=== PATIENT | female | born 1930 | race Caucasian/White ===

== ENCOUNTER 2017-10-28 17:07 | Emergency (ER) | payer OTHER ==
[~2017-10-28] VITALS: Ht 167.6 cm; Wt 62.0 kg
[~2017-10-28 17:07] MED LIST: AMLODIPINE BESY10 MG PO; Ascorbic Acid,Ester- PO; CYANOCOBALAM1000 MCG PO; Dulcolax PO; FEMARA2.5 MG PO; Folvite PO; Glucophage PO; LETROZOLE2.5 MG PO; LEVOTHYROXINE125 MCG PO; Levothroid,Synthroid PO; METFORMIN HCL1000 MG PO; METOPROLOL SUC100 MG PO; METRO PO; Macrobid PO; Norvasc PO; PRAVACHOL80 MG PO; Percocet 5/325,Endoc PO; Pravachol PO; Protonix PO; Senokot S,Pericolace PO; Theragran PO; Toprol XL PO
[2017-10-28 17:43] LABS: HEMATOCRIT 33.3 % (36.0-46.0); HEMOGLOBIN 11.1 G/DL (11.9-15.5); MCH 31.1 PG (29.0-34.0); MCHC 33.3 G/DL (30.0-36.0); MCV 93.3 FL (83-99); PLATELET COUNT 162 K/uL (156-360); RBC DIS.WIDTH-CV 13.6 % (11.8-14.6); RBC DIS.WIDTH-SD 46.3 % (39-53); RED BLOOD COUNT 3.57 M/uL (3.80-5.20); WHITE BLOOD COUNT 7.1 K/uL (4.1-10.2)
[2017-10-28 17:56] LABS: ALBUMIN 4.1 g/dL (3.2-4.8)
[2017-10-28 17:57] LABS: CHLORIDE 109 mEq/L (99-109); POTASSIUM 3.5 mEq/L (3.7-5.4); SODIUM 140 mEq/L (136-147)
[2017-10-28 17:59] LABS: GLUCOSE 200 mg/dL (70-99); TOTAL PROTEIN 7.3 g/dL (6.4-8.3)
[2017-10-28 18:01] LABS: TOTAL BILIRUBIN 0.5 mg/dL (0.0-1.0)
[2017-10-28 18:02] LABS: ALKALINE PHOSPHATASE 79 IU/L (3-129)
[2017-10-28 18:03] LABS: GFR ESTIMATE (CALCULATED) 56 mL/min/
[2017-10-28 18:04] LABS: AST (GOT) 15 IU/L (2-34); UREA NITROGEN (BUN) 25 mg/dL (9-23)
[2017-10-28 18:05] LABS: ALT (GPT) 9 IU/L (3-49)
[2017-10-28 18:08] LABS: TROP-I INTERPRETATION NEGATIVE; TROPONIN-I 0.02 ng/mL (0.0-0.30)
[2017-10-28 19:55] LABS: APPEARANCE SL.HAZY ((CLEAR)); BILIRUBIN NEGATIVE; BLOOD SMALL; COLOR YELLOW ((YELLOW)); GLUCOSE (STRIP) NEGATIVE; KETONES NEGATIVE; LEUKOCYTES NEGATIVE; NITRITE NEGATIVE; PROTEIN (STRIP) NEGATIVE; UROBILINOGEN 0.2 MG/DL (0.2-1.0)
[2017-10-28 20:27] LABS: BACTERIA 3+ /HPF; EPITHELIAL CELLS 1+ /HPF; MUCUS 1+ /LPF; RED BLOOD CELLS 0-5 /HPF (0-5); UCUL ADDED? YES
[2017-10-29] MEDS ORDERED: CEFDINIR300 MG PO (00:26)
[2017-10-29 00:29] VITALS: BP 165/75
== END 2017-10-29 00:58 | disposition home or self-care (01) ==
LOC: EME 17:07
PROVIDERS: Emergency Medicine
DX: N39.0 Urinary tract infection, site not specified (principal); B96.1 Klebsiella pneumoniae [K. pneumoniae] as the cause of diseases classified elsewhere; F07.81 Postconcussional syndrome; E11.51 Type 2 diabetes mellitus with diabetic peripheral angiopathy without gangrene; I10 Essential (primary) hypertension; E03.9 Hypothyroidism, unspecified; K21.9 Gastro-esophageal reflux disease without esophagitis; I25.2 Old myocardial infarction; Z85.3 Personal history of malignant neoplasm of breast; Z96.643 Presence of artificial hip joint, bilateral; Z95.1 Presence of aortocoronary bypass graft; Z88.2 Allergy status to sulfonamides; Z88.8 Allergy status to other drugs, medicaments and biological substances
CPT/HCPCS: 70450; 71045; 72125; 73030; 80053; 81003; 84484; 85027; 87077; 93005; 99281; 99285; J0696